=== PATIENT | female | born 1990 | race Caucasian/White ===

== ENCOUNTER → 2018-10-21 13:41 | Outpatient (CLI) | payer OTHER, MEDICAID, SELFPAY ==
--- NOTE | 2018-10-21 13:42 | RAD_ITS ---
STUDY: X-RAY - CERVICAL SPINE REASON FOR EXAM: Female, 28 years old. Back pain TECHNIQUE: Lateral neutral, lateral flexion, lateral extension and AP view(s) of the cervical spine were obtained. COMPARISON: None FINDINGS: Normal anterior atlantoaxial articulation. Normal odontoid process. There is straightening of the normal cervical lordosis. Normal vertebral bodies and endplates. Normal disc space heights. No subluxation on flexion, extension or neutral views. Limited range of motion. The soft tissue structures are unremarkable. RAD/Cerv Spine 4 or 5 Views IMPRESSION: 1. No subluxation on neutral, flexion or extension views. 2. Straightening of the normal cervical lordosis with limited range of motion suggests possibility of muscular spasm. Electronically Signed: Faustino Velazquez MD at 17:25 EST , Service support ,
== END ==
PROVIDERS: Family Provider Family Medicine; PCP Family Medicine; Referring Provider Physician Assistant; Visit Provider Physician Assistant
DX: M54.12 Radiculopathy, cervical region (principal)
CPT/HCPCS: 72050

== ENCOUNTER → 2018-11-18 14:36 | Outpatient (CLI) | payer OTHER, MEDICAID, SELFPAY ==
--- NOTE | 2018-11-18 14:39 | US_ITS ---
STUDY: Soft tissue neck ULTRASOUND REASON FOR EXAM: Female, 28 years old. Palpable abnormality TECHNIQUE: Ultrasound evaluation of the soft tissue neck was performed with real-time and static avery-scale imaging. COMPARISON: None. FINDINGS: Area of palpable abnormality directed by the patient (inferior cervical/upper thoracic region (posterior)) shows normal soft tissue planes without solid or cystic mass. Imaging was performed both with the patient prone and erect. US/Head/Neck Soft Tissue IMPRESSION: No documented solid or cystic mass. Electronically Signed: Faustino Velazquez MD at 17:58 EDT , Service support ,
== END ==
PROVIDERS: Family Provider Nurse Practitioner Family; PCP Nurse Practitioner Family; Referring Provider Physician Assistant; Visit Provider Physician Assistant
DX: M25.512 Pain in left shoulder (principal); M54.2 Cervicalgia
CPT/HCPCS: 76536

== ENCOUNTER → 2019-04-14 12:41 | Outpatient (CLI) | payer MEDICAID, SELFPAY ==
--- NOTE | 2019-04-14 12:44 | MRI_ITS ---
STUDY: MRI CERVICAL SPINE WITHOUT CONTRAST REASON FOR EXAM: Female, 28 years old. Neck pain. Stiffness. TECHNIQUE: Standardized fat and water weighted pulse sequences were obtained in the sagittal and axial planes. COMPARISON: X-ray dated October 21, 2018. FINDINGS: Normal foramen magnum and brainstem-cervical cord junction. Normal craniovertebral junction. Normal anterior atlantoaxial articulation. Normal odontoid process. Cervical straightening. No significant scoliosis. No acute fracture, dislocation or osseous destruction. C2-3: Normal endplates. Normal disc height, signal and morphology. Normal central canal and intervertebral neural foramina. C3-4: Normal endplates. Normal disc height, signal and morphology. Normal central canal and intervertebral neural foramina. C4-5: Normal endplates. Normal disc height, signal and morphology. Normal central canal and intervertebral neural foramina. C5-6: Minimal endplate spondylosis. Disc bulge, slightly prominent centrally, with mild central canal narrowing. Moderate/severe left neural foraminal narrowing. Normal right neural foramina. C6-7: Minimal endplate spondylosis. Shallow disc bulge with minimal central canal narrowing. Normal bilateral neural foramina. C7-T1: Normal endplates. Normal disc height, signal and morphology. Normal central canal and intervertebral neural foramina. No abnormal cervical cord signal. Vascular flow voids maintained. Cervical lymph nodes (none of which appear pathologically enlarged). Normal thyroid. MRI/Spine Cervical (Routine) IMPRESSION: No abnormal cervical cord signal C5-6, C6-7 intervertebral disc disease with mild central canal narrowing C5-6 moderate/severe left neural foraminal narrowing Cervical straightening with minimal osseous degenerative change Electronically Signed: Watson Smith DO at 14:08 EDT Tel , Service support ,
== END ==
PROVIDERS: Family Provider Nurse Practitioner Family; PCP Nurse Practitioner Family; Referring Provider Orthopaedic Surgery; Visit Provider Orthopaedic Surgery
DX: M25.512 Pain in left shoulder (principal); M54.2 Cervicalgia; R22.1 Localized swelling, mass and lump, neck
CPT/HCPCS: 72141

== ENCOUNTER → 2019-05-24 13:31 | Outpatient (CLI) | payer OTHER, MEDICAID, SELFPAY ==
--- NOTE | 2019-05-24 14:21 | NEURO ---
NCS and/or EMG Patient Report Ordering Doctor: Sheela Barth DATE OF SERVICE: 05/24/19 Wendie Owens is a 28-year-old female presents for electrodiagnostic testing of the left upper limb. She reports numbness and tingling in the left hand as well as pain from the neck radiating into the left arm. Electrodiagnostic findings: Left median motor nerve demonstrates normal distal latency, amplitude and conduction velocity. Normal left ulnar motor response, including conduction across the elbow. Normal median and ulnar F waves. Sensory responses within normal limits. On needle EMG, all muscles tested in the left upper limits of the left cervical paraspinal showed no evidence of denervation with normal motor unit action potentials. Electrodiagnostic impression: This is a normal electrodiagnostic study of the left upper limb. There is no electrodiagnostic evidence for peripheral neuropathy, including carpal tunnel or cubital tunnel syndrome. There is no electrodiagnostic evidence for cervical radiculopathy. If any further questions please not hesitate contact me
== END ==
PROVIDERS: Family Provider Nurse Practitioner Family; PCP Nurse Practitioner Family; Referring Provider Orthopaedic Surgery; Visit Provider Orthopaedic Surgery
DX: M25.512 Pain in left shoulder (principal); M54.2 Cervicalgia; R20.0 Anesthesia of skin; R20.2 Paresthesia of skin
CPT/HCPCS: 95886; 95910

== ENCOUNTER → 2020-02-12 10:37 | Outpatient (CLI) | payer OTHER, SELFPAY ==
--- NOTE | 2020-02-12 10:38 | RAD_ITS ---
STUDY: X-RAY - PELVIS AND RIGHT HIP REASON FOR EXAM: Female, 29 years old. CHRONIC RIGHT HIP PAIN TECHNIQUE: 3 views of the pelvis and hip. COMPARISON: None. FINDINGS: There is a non-specific bowel gas pattern. Normal visualized soft tissue structures. Normal bilateral iliac wings, sacroiliac joints and visualized sacrum. Normal bilateral superior and inferior pubic rami. Normal pubic symphysis. Normal bilateral ischial tuberosities. Normal visualized femoral head. Normal acetabulum. Normal hip joint. RAD/HIP, UNI W/ Pelvis 2-3 Views IMPRESSION: Normal x-ray examination of the pelvis and hip. Electronically Signed: Etienne Summers MD at 0:00 EDT , Service support ,
== END ==
PROVIDERS: PCP Nurse Practitioner Family; Referring Provider Physician Assistant; Visit Provider Physician Assistant
DX: M25.551 Pain in right hip (principal)
CPT/HCPCS: 73502

== ENCOUNTER 2021-02-09 16:16 | Emergency (ER) | payer MEDICAID, SELFPAY ==
[2021-02-09 16:18] VITALS: BP 126/76; PULSE 85; PULSE 98; RESP 20; RESP 21; TEMP 37; O2SAT 100; BMI 32.5
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
[2021-02-09 16:40] VITALS: O2SAT 98
--- NOTE | 2021-02-09 16:41 | RAD_ITS ---
STUDY: X-RAY - RIGHT HAND REASON FOR EXAM: Female, 30 years old. PAIN TECHNIQUE: 3 view(s) of the hand. COMPARISON: None. FINDINGS: Normal radiocarpal articulation. Normal distal radioulnar joint. Normal visualized carpal bones. Normal carpal articulations Normal carpometacarpal articulation of the thumb. Normal second through fifth carpometacarpal joints. Normal metacarpi. No visualized fracture or displaced bony fragment. Normal metacarpophalangeal joint of the thumb. Normal interphalangeal joint of the thumb. Normal proximal and distal phalanges of the thumb. Normal metacarpophalangeal joints of the second through fifth fingers. Normal proximal and distal interphalangeal joints of the second through fifth fingers. Normal phalanges of the second through fifth fingers. The soft tissue structures are unremarkable. RAD/Hand Min 3 Views IMPRESSION: Normal x-ray examination of the hand. Electronically Signed: Rc Beard MD at 17:42 EDT , Service support ,
[2021-02-09] MEDS: Diphth,Pertuss(Acell),Tet Vac 0.5 ML Vial IM (17:12)
[2021-02-09] MEDS: Lidocaine 1% (20 ml mdv) 20 ML Vial INFILT (17:12)
[2021-02-09 17:30] VITALS: BP 128/76; PULSE 85; RESP 23; O2SAT 99
[2021-02-09] MEDS: Ondansetron 4 MG/2 ML Vial IV (18:10)
[2021-02-09] MEDS: Morphine 4 MG/ML Syringe IV (18:10)
--- NOTE | 2021-02-09 18:12 | NURSING ---
[facility]
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
[2021-02-09] MEDS: 0.9% Normal Saline 1,000 ML 1000 ML IV (18:19)
[2021-02-09] MEDS: Cefazolin 1 GM/50 ML BAG IV (18:19)
[2021-02-09 18:25] VITALS: BP 128/77; PULSE 90; RESP 20; O2SAT 99
[2021-02-09 18:45] LABS: Absolute Lymphocyte Count 1.37 X10^3/uL (0.83-4.51); Absolute Neutrophil Count 17.8 X10^3/uL (2.0-7.7); Basophil# 0.05 X10^3/uL; Basophil% 0.2 % (0-1); Eosinophil# 0.05 X10^3/uL; Eosinophils% 0.2 % (0-5); Hematocrit 38.5 % (37-47); Hemoglobin 12.4 g/dL (12.0-15.0); Lymphocyte # 1.37 X10^3/ul (0.83-4.51); Lymphocyte % 6.7 % (19-41); Mean Corp Hgb Conc 32.2 g/dL (32-36); Mean Corpuscular Hgb 28.8 pg (27.0-32.0); Mean Corpuscular Volume 89.5 fL (81-99); Monocyte# 1.15 X10^3/uL; Monocyte% 5.6 % (0-10); NRBC Flagged by Analyzer 0 % (0-5); Neutrophil # 17.76 X10^3/uL (2.7-7.7); Neutrophil % 86.8 % (47-70); Platelet Count 400 K/mm3 (150-450); RBC Distribution Width CV 13.2 % (11.6-14.6); RBC Distribution Width SD 43.8 fl (35.1-43.9); White Blood Count 20.5 K/mm3 (4.4-11.0)
[2021-02-09] MEDS: Morphine 2 MG/ML Syringe IV (18:48)
[2021-02-09 19:01] LABS: AST(SGOT) 41 U/L (15-37); Alanine Aminotransfer ALT/SGPT 32 U/L (13-56); Albumin, Serum 3.5 g/dL (3.2-5.0); Alkaline Phosphatase 75 U/L (45-117); Anion Gap 6 (5-15); BUN 16 mg/dL (7-18); BUN/Creat Ratio 18.3 RATIO (10-20); Calcium,Total 8.7 mg/dL (8.5-10.1); Chloride 109 mmol/L (98-107); Creatinine, Serum 0.87 mg/dL (0.55-1.02); EST Glomerular Filtration Rate 80 mL/min (>60); Est Glom Filt Rate - Afr Amer 97 mL/min (>60); Estimated Creatinine Clearance 94.51 ml/min; Globulin 3.5 g/dL (2.2-4.2); Glucose 109 mg/dL (74-106); Potassium 3.6 mmol/L (3.5-5.1); Sodium Level 141 mmol/L (136-145)
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
[2021-02-09 19:27] VITALS: BP 117/63; PULSE 74; RESP 14; O2SAT 98
[2021-02-09 19:30] LABS: Alcohol, Blood (Medical)-Serum < 3.0 mg/dL
== END 2021-02-09 19:41 | disposition short-term general hospital (02) ==
PROVIDERS: Emergency Provider Emergency Medicine
DX: S06.0X9A Concussion with loss of consciousness of unspecified duration, initial encounter (principal); F32.9 Major depressive disorder, single episode, unspecified; S41.112A Laceration without foreign body of left upper arm, initial encounter; V86.65XA Passenger of 3- or 4- wheeled all-terrain vehicle (ATV) injured in nontraffic accident, initial encounter; Z79.899 Other long term (current) drug therapy
CPT/HCPCS: 70450; 72125; 73060; 73130; 80053; 82077; 85025; 90715; 96365; 96372; 96375; 96376; 99285; A4216; J2405

== ENCOUNTER → 2023-06-02 | Outpatient (CLI) | payer MEDICAID, SELFPAY ==
--- NOTE | 2023-06-02 15:08 | MRI_ITS ---
EXAM: MR CERVICAL SPINE WITHOUT INTRAVENOUS CONTRAST CLINICAL INDICATION: herniated disc C5-6 TECHNIQUE: Multiplanar and multisequence MR images of the cervical spine without intravenous contrast were performed. COMPARISON: No relevant prior studies available. FINDINGS: VERTEBRAE: Normal. Normal vertebral bodies and posterior elements. Normal alignment. Normal craniocervical junction and cervicothoracic junction. No spondylolisthesis. There is preservation of the normal cervical lordosis. SPINAL CORD: Unremarkable in signal and morphology. SOFT TISSUES: Normal. No prevertebral soft tissue swelling. LYMPH NODES: Normal. There is no cervical adenopathy. DISCS/SPINAL CANAL/NEURAL FORAMINA: C2-C3: Normal. Normal disc height and morphology. Normal spinal canal. Normal neuroforamina. C3-C4: Normal. Normal disc height and morphology. Normal spinal canal. Normal neuroforamina. C4-C5: Right central disc protrusion causes mild impingement on the thecal sac. Intact neural foramina. C5-C6: Central disc protrusion causing mild compression of the thecal sac. Intact neural foramina. C6-C7: Mild central disc protrusion is mild impression on the thecal sac. Normal neuroforamina. C7-T1: Normal. Normal disc height and morphology. Normal spinal canal. Normal neuroforamina. MRI/Spine Cervical (Routine) IMPRESSION: Central disc protrusion at C4-5, C5-6 and C6-7 causing mild impression on the thecal sac. Intact neural foramina. Normal cervical cord. Electronically Signed: Ernesto Baeza MD at 17:03 EDT ,
== END | disposition home or self-care (01) ==
PROVIDERS: Referring Provider Orthopaedic Surgery; Visit Provider Orthopaedic Surgery
DX: M50.222 Other cervical disc displacement at C5-C6 level (principal)
CPT/HCPCS: 72141